=== PATIENT | female | born 1935 | race Caucasian/White ===

== ENCOUNTER 2016-12-04 15:41 | Inpatient (IN) | payer MEDICARE ==
[~2016-12-04] VITALS: Ht 157.5 cm; Wt 97.0 kg
--- NOTE | ~2016-12-04 | ECHO ---
Transthoracic Echocardiography Report (TTE) Demographics Patient Name JAK KYLE Date of Study 12/04/2016 Patient Number [id number] Visit Number [id number] Date of 1935 Room Number G6203 Gender Female Number Age 81 year(s) Referring More Dangelo Utility Mechanic Supervisor Wiliam Lazcano RVT, Physician [facility] Ghanshyam Redding MD Physician Interpreting More Dangelo Adjunct Lecturer Physician Supervising Ordering More Dangelo MD/MLP Physician Nurse Stress Silk Worker Conclusions Contractility Score Summary Normal Left Ventricular contractility was noted. Summary The estimated left ventricular ejection fraction is 65% with normal WM.LV wall thickness is normal.The left ventricle is normal in size . Mildly dilated RHCs with normal RV function. Mild mitral regurgitation by color Doppler. Mild aortic sclerosis. Mild to moderate tricuspid regurgitation by color Doppler. There is severe pulmonary hypertension. The pulmonary pressure (RVSP) is 57 mmHg. Procedure Type of Study TTE procedure:2D Echocardiogram. Procedure Date Date: 12/04/2016 Start: 05:06 PM Study Location: Car Refinisher Technical Quality: Fair due to lung interference. Indications:Post Code. Appropriate Use Criteria: 8 Patient Status: STAT Rhythm: NSR HR: 59 bpm Allergies - No known allergies. M-Mode/2D Measurements LV Diastolic Dimension: 4.31 cm LV Systolic Dimension: 2.5 cm LV Septum Diastolic: 0.87 cm LV PW Diastolic: 0.8 cm Cardiac Output: 1.53 l/min LA Dimension: 3.3 cm EF Estimated: 65 % LVOT: 1.4 cm LVOT VTI: 16.9 cm RV Base: 3.36 cm LV Stroke volume: 26 ml RV Length: 6.86 cm TAPSE: 1.73 cm TDI-S': 8.33 cm/s Doppler Measurements AV Peak Velocity: 1.8 m/s MV Peak E-Wave: 0.87 m/s AV Peak Gradient: 12.96 mmHg MV Peak A-Wave: 0.41 m/s AV Mean Gradient: 7 mmHg MV E/A Ratio: 2.16 LVOT Peak Velocity: 0.99 m/s MV P1/2t: 72 msec TR Gradient:51.55 mmHg PV Peak Velocity: 1.24 m/s Estimated RAP:5 mmHg PV Peak Gradient: 6.15 mmHg Estimated RVSP: 57 mmHg Estimated PASP: 56.55 mmHg E' Septal Velocity: 0.08 m/s A' Septal Velocity: 0.05 m/s E' Lateral Velocity: 0.1 m/s A' Lateral Velocity: 0.07 m/s Findings Left Ventricle The left ventricle is normal in size with normal wall thickness,EF and WM. Right Ventricle Mildly dilated RV with normal function. Left Atrium Normal left atrial size. There is no evidence of patent foramen ovale or atrial septal defect by color Doppler. Right Atrium Mildly dilated RA. Mitral Valve Mild mitral regurgitation by color Doppler. Aortic Valve The aortic valve is mildly sclerotic. Tricuspid Valve Mild to moderate tricuspid regurgitation by color Doppler. There is severe pulmonary hypertension. The pulmonary pressure (RVSP) is 57 mmHg. Pulmonic Valve Normal pulmonic valve structure and function. Pericardial Effusion No evidence of pericardial effusion. Miscellaneous Visualized portions of the aortic root and ascending aorta appear normal in size. Pleural Effusion No evidence of pleural effusion. Contractility Score LV regional wall motion:(0-Non visualized 1-Normal 2-Hypokinesis 3-Akinesis 4-Dyskinesis 5-Aneurysm) Signature dtt: Loreto Aguero dtd: 12/04/16 1706 Physician Self Edit
--- NOTE | ~2016-12-04 | DS ---
PATIENT'S NAME: JAK KYLE [facility] AGE: 81 Y [address] ROOM: [place] [address] LOCATION: GICU ADMIT DATE: 12/04/2016 Discharge Summary DISCHARGE DATE: 12/05/2016 FAMILY PHYSICIAN: Dora Morrissey MD ATTENDING PHYSICIAN: Loreto Aguero DATE OF : 12/05/2016. The patient is a 81-year-old female, who had a back surgery done 3 weeks earlier and was home when she suddenly collapsed. veterinary x ray operator were called and CPR started. Initial rhythm apparently was asystole followed by PEA and then did have ROSC. At that time, an EKG was done, I was called. There was mild ST- elevation which was concave upwards in lead III. But given her sudden cardiac , I decided to take a look at her coronaries. The patient was taken to the company laborer and coronary showed no significant critical lesions. The patient's blood pressure was getting lower, and the patient was placed on intra-aortic balloon pump before her coronary angiography. She was also started on Levophed and Yang-Synephrine to keep her systolic blood pressure up. By then, she was already intubated by the time she left the emergency room. She was transferred back to intensive care unit. Dr. Leroy and Dr. Aguilar were consulted. The patient was not cooled because of significant amount of support that she required for blood pressure maintenance. Based on the patient's circumstance, the family decided to withdraw support several hours later, and the patient in the intensive care unit. MD SONAL PERRIN/neda /[id number] d: 12/07/162123 t: 12/27/16 1449, DISCHARGE SUMMARY
--- NOTE | ~2016-12-04 | ER ---
PATIENT'S NAME: JAK KYLE [facility] AGE: 81 Y [address] ROOM: [place] [address] LOCATION: [place] ADMIT DATE: 12/04/2016 ER/Outpatient Report DISCHARGE DATE: FAMILY PHYSICIAN: Dora Morrissey MD ATTENDING PHYSICIAN: Loreto Aguero CHIEF COMPLAINT: Cardiac arrest. HISTORY OF PRESENT ILLNESS: The patient arrives by ambulance with CPR in progress, after two rounds of epinephrine. EMS reports an initial presenting rhythm of asystole shortly followed by PEA. Total CPR time prior to arrival of 12 minutes. The patient was reported to be at home with family with no prior complaints, who had an intermediate arrest, and she did have a history of back surgery in August. Based on her medication list, she probably has Parkinson's and possibly hypertension versus tremor, as she is treated with labetalol. She is not on any anticoagulation. The family notes she is otherwise healthy and had not had any complaints prior to that. She supposedly just went completely unresponsive. They felt no pulse, started CPR, and called the ambulance. PAST MEDICAL HISTORY: 1. Likely parkinsonism. 2. Back problems. MEDICATIONS: Carbidopa and levodopa, labetalol, and some other medicines. ALLERGIES: NONE. SOCIAL HISTORY: Previously healthy. , lives at home with her in [place]. REVIEW OF SYSTEMS: Unable to obtain. All information was collateral from EMS and family. PHYSICAL EXAMINATION: GENERAL: Initial presentation, cardiac arrest, CPR in progress with adequate chest compressions by Quinn device. Endotracheal tube and bagging underway. HEENT: The patient's pupils are fixed, dilated, and minimally responsive. No pupillary response. She is flaccid in all extremities. No meaningful movement or response to pain. CHEST: CPR in progress. The patient does have bilateral breath sounds, but very coarse. No cardiac tones auscultated. PATIENT'S NAME: JAK KYLE [facility] AGE: 81 Y [address] ROOM: [place] [address] LOCATION: [place] ADMIT DATE: 12/04/2016 ER/Outpatient Report DISCHARGE DATE: FAMILY PHYSICIAN: Dora Morrissey MD ATTENDING PHYSICIAN: Loreto Aguero ABDOMEN: Distended. There are breath sounds in the gastric region as well. EXTREMITIES: Right lower extremity has an IO. Poor perfusion and poor color distally. SKIN: Cool, and clammy at the periphery, warm centrally. The endotracheal tube does have serosanguineous secretions, pink frothy sputum. No obvious bleeding anywhere. No obvious deformities. LABORATORY DATA AND IMAGING STUDIES: Labs and X-rays: Chest x-ray shows upper lobe consolidations consistent with aspiration, pulmonary edema with endotracheal tube in the trachea. EKG concerning for STEMI, lateral ST-segment depressions with criteria in leads III and aVF. Not meeting criteria in lead II. Labs: WBC is 15.6, hemoglobin 10.8, and INR is 1.0. Urinalysis, no evidence of infection. No blood. CMS is pending. IMPRESSION: 1. Status post cardiac arrest with return of spontaneous circulation (ROSC). 2. Likely aspiration with pulmonary edema. 3. Hypoxia. 4. Possible ST-elevation myocardial infarction. 5. Leukocytosis. EMERGENCY DEPARTMENT COURSE: The patient was transferred over to the ER bed. She was transferred to the appropriate monitor and was given a round of epinephrine as soon as possible. Upon the next rhythm check, after 3 minutes, the patient was found to have a pulse. Transthoracic echocardiogram by ER physician showed adequate cardiac squeeze. Blood pressure was elevated in the 180 systolic. The pulmonary exam was consistent with endotracheal intubation without adequate cuff closure. The endotracheal tube was exchanged by myself over a tube exchanger. The cuff was inflated. The patient had definite bilateral breath sounds, and the endotracheal tube was visualized with a C-MAC blade going through the cords. End-tidal CO2 was 56, and the patient had markedly diminished sounds over the epigastrium with breaths. Rest of the FAST exam did not reveal any significant fluid anywhere. No obvious pneumothorax. The extremities were appropriate, not consistent with PE. No septal bulging on my bedside echocardiogram. Chest x-ray and EKG were obtained, likely ischemic event. Dr. Aguero, trouble operator was called at bedside to evaluate the patient. He is recommending transfer to catheterization lab for further intervention. I spoke with the family including the and daughter. They expressed desire to continue with her evaluation at this point in time. However, they thought that she would not want further extreme measures if we determine that it would be a poor outcome. As the patient was a witnessed arrest with immediate resuscitation, She would have a somewhat decent chance of recovery. The patient was taken to the catheterization lab emergently. Her blood PATIENT'S NAME: JAK KYLE [facility] AGE: 81 Y [address] ROOM: [place] [address] LOCATION: [place] ADMIT DATE: 12/04/2016 ER/Outpatient Report DISCHARGE DATE: FAMILY PHYSICIAN: Dora Morrissey MD ATTENDING PHYSICIAN: Loreto Aguero pressure had been trending down, but blood pressure did stabilize around 100 systolic. There is no evidence of hemorrhage or DVT. EKG does not reveal any significant electrolyte abnormalities and for patient's sake, she was taken to the catheterization lab at that time. She remained unstable. Dr. Leroy, hospitalist was made aware and will participate in her care, if she survives the catheterization lab. PROCEDURES: Endotracheal intubation. Endotracheal tube was exchanged over the tube exchanger and visualized through the cords with adequate end-tidal CO2 by myself at bedside. CPR: Three minutes of CPR was immediately supervised by myself before ROSC. CRITICAL CARE: 32 minutes of critical care was spent on this patient in the emergency department. Time was spent in preparation of the room initiating code blue, consult with the hospitalist and Cardiology, ordering and interpreting chest x- ray, ordering and interpreting EKG, ordering labs, bedside assessment, and stabilization in the setting of post arrest with return of spontaneous circulation. All questions were answered to the family to the best of my ability, and the patient was taken to the catheterization lab in critical condition. MD JAY GREENE/neda /[id number] d: 12/04/162235 t: 12/07/162218, OUTPATIENT REPORT
--- NOTE | ~2016-12-04 | CON ---
PATIENT'S NAME: JAK KYLE [facility] AGE: 81 Y [address] ROOM: [place] [address] LOCATION: GICU ADMIT DATE: 12/04/2016 Consultation DISCHARGE DATE: FAMILY PHYSICIAN: Dora Morrissey MD ATTENDING PHYSICIAN: Loreto Aguero DATE OF CONSULTATION: 12/04/2016 REFERRING PHYSICIAN: Cesar Aguilar MD REFERRING: Hospitalist Service. REASON FOR REFERRAL: Respiratory failure. HISTORY OF PRESENT ILLNESS: The patient is a 81-year-old woman who developed a cardiac arrest at home. She was down for 10-15 minutes before effective circulation was restored. PAST MEDICAL HISTORY: Please refer to the admission history and physical exam. FAMILY HISTORY: Unobtainable due to her intubated state. SOCIAL HISTORY: Unobtainable due to her intubated state. REVIEW OF SYSTEMS: Unobtainable due to her intubated state. PHYSICAL EXAMINATION: GENERAL: Unresponsive on mechanical ventilation, intubated. ENT: Unremarkable. NECK: Normal. CHEST: Normal. LUNGS: Diminished. HEART: Regular. ABDOMEN: Nontender. ASSESSMENT: Cardiac arrest. PLAN: The patient's family has asked to withdraw support given her poor prognosis. PATIENT'S NAME: JAK KYLE [facility] AGE: 81 Y [address] ROOM: [place] [address] LOCATION: [facility] ADMIT DATE: 12/04/2016 Consultation DISCHARGE DATE: FAMILY PHYSICIAN: Dora Morrissey MD ATTENDING PHYSICIAN: Loreto Aguero We will comply with this request. MD PAMELA LOPEZ/modl /[id number] d: 12/05/16 0011 t: 12/05/16 1743, CONSULTATION REPORT
--- NOTE | ~2016-12-04 | HP ---
PATIENT'S NAME: JAK KYLE [facility] AGE: 81 Y [address] ROOM: [place] [address] LOCATION: [facility] ADMIT DATE: 12/04/2016 History & Physical DISCHARGE DATE: FAMILY PHYSICIAN: Dora Morrissey MD ATTENDING PHYSICIAN: Loreto Aguero DATE OF SERVICE: CHIEF COMPLAINT: Cardiac arrest. HISTORY OF PRESENT ILLNESS: This is a 81-year-old female who was a code blue to the emergency room of [facility]. History was obtained from the who witnessed the event. He reported that as the patient was about getting dressed for them to go for a steak dinner, as she sat on her mobile commode, she suddenly passed out with her head going backwards and the reported at that point in time, he was unable to get a pulse, so he called 911 and the EMS team came, so the patient was a code blue to the emergency room at [facility] and the patient was intubated on field, and upon arrival in the ER, CPR was continued and ROSC was obtained after 15 minutes. Per report, the initial EKG which was done in the ER appeared to show what appeared to be an inferior STEMI and so the STEMI code was called and the patient was emergently taken into the into the [facility]. Per report, the cardiac cath which was done essentially showed a negative coronaries, however, prior to the cath, the patient had an intra- atrial balloon pump placed as there was concern that probably maybe she had an inferior wall ID. Following the negative cath, the senior gis analyst, Dr. Aguero, decided to order a CT of the head without contrast as well as CT of the chest without contrast. Verbal report from Dr. Diggs, the radiologist per the CT of the thorax was that it showed diffuse consolidation of the lungs, which could be from fluid or from aspiration and also extensive air in both the thoracic as well as the aorta. He reports that the CT head is negative. The also reports that the patient was in her usual state of health and mind when woke up this morning, and even yesterday she was in her usual state without any problems or complaints. On the patient's arrival from the [facility], she was on 3 pressors, on Yang-Synephrine, on Levophed, as well as dopamine. REVIEW OF SYSTEM: All the system were asked and as documented in the HPI others are negative. PAST MEDCIAL HISTORY: Chronic lower back pain, Osteoarthritis of the hips. PAST SURGICAL HISTORY: Bilateral hip replacement,hysterectomy, back surgery, appendectomy sOCIAL HISTORY: Lives with her , no history of smoking or use of alcohol FAMILY HISTORY: Negative for Diabetes Mellitus and premature coronary artery disease PHYSICAL EXAMINATION: VITAL SIGNS: On arrival to the ICU: Blood pressure 144/70, pulse 64, respiratory rate 20, and temperature 93.1. GENERAL: An elderly female who is intubated, who is motionless in the bed, not on sedation, has not been on any sedation since admit. The patient is not responsive to both vocal and tactile stimuli. She does not respond to nail bed pain or sternal rub. On neurologic examination, pupils PATIENT'S NAME: JAK KYLE [facility] AGE: 81 Y [address] ROOM: [place] [address] LOCATION: [facility] ADMIT DATE: 12/04/2016 History & Physical DISCHARGE DATE: FAMILY PHYSICIAN: Dora Morrissey MD ATTENDING PHYSICIAN: Loreto Aguero are fixed and dilated, not responsive to light. There is no corneal reflex. There is no gag reflex. HEENT: Normocephalic, atraumatic. Pharynx: ET tube is in place. Ears: No obvious ear discharge or drainage. CARDIOVASCULAR SYSTEM: Diffuse rales in both lung hinds. ABDOMEN: Soft, nondistended. No area of tenderness. No palpable organomegaly. Reduced bowel sounds. EXTREMITIES: There is no joint swelling or erythema or tenderness. SKIN: No rash or skin breakdown. LABORATORY DATA: Cardiac enzymes: Troponin less than 0.040. CPK 265. ABG; pH 7.10, pCO2 54, PO2 64, bicarb 16.8. WBC 15.6, H and H 10.8/38.8, and platelets 100. Sodium 139, creatinine 2.3, potassium 6.4, chloride 107, CO2 16, calcium 8.1, BUN 56, and glucose 195. Alkaline phosphatase 184, ALT 11, AST 84. Albumin 3.5. Magnesium 2.9. INR 1.08. UA: Leukocytes negative, nitrite negative, wbc's 2- 5. CT of the head is reported as normal CT scan of the head except for sphenoid air cell fluid. ASSESSMENT AND PLAN: This is a 81-year-old female with cardiac arrest. 1. Cardiac arrest, present on admission, unknown etiology. The patient is status post left heart catheterization, as per report negative coronaries. The patient has had a CT chest and a CT head. 2. 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 We will get an MRI of the brain probably tomorrow and if the patient's family have not withdrawn care, we will get an MRI on Tuesday. 3. Acute kidney injury, likely secondary to cardiac arrest. Renal has been consulted. 4. Aspiration pneumonia. We will start the patient on Zosyn and clindamycin. Pharmacy is to dose. So prognosis is very poor. I did discuss with the and the daughter that the prognosis is very poor and that most probably the patient has passed as there is not much brainstem function present and they did express their understanding and they are waiting for other family members to be present. The line of management was explained to the family as well as care. Time spent on this patient is approximately 1 hour. ADWOA IGNACIO MD ODO/neda PATIENT'S NAME: JAK KYLE [facility] AGE: 81 Y [address] ROOM: [place] [address] LOCATION: [facility] ADMIT DATE: 12/04/2016 History & Physical DISCHARGE DATE: FAMILY PHYSICIAN: Dora Morrissey MD ATTENDING PHYSICIAN: Loreto Aguero /[id number] D: 356 T: 650 HISTORY & PHYSICAL
--- NOTE | ~2016-12-04 | CATH ---
Cardiac Diagnostic Report Demographics Patient Name SAROJ Estes Gender Female Date of 1935 Age 81 year(s) Patient Number [id number] Date of Study 12/04/2016 Visit Number [id number] Room Number G6[address] [place] [id number] Ht 162.56 cm Wt 92.4 kg Referring Ghanshyam Redding Primary Physician Physician Performing More Secondary Physician Physician Loreto CHRIS Diagnostic More Assisting Physician Physician Loreto CHRIS Interventional Physician Dredge Captain Physician Findings and Conclusions Diagnostic Findings and Conclusion Minimal CAD. LVEDP 20 Diagnostic Recommendations IABP and medical therapy. Procedure Description The patient was brought to the diagnostic cardiac catheterization-EP laboratory in the fasting, non-sedated state. Informed consent was obtained in the written and verbal form after the risks and benefits were explained. The patient had no further questions and agreed to proceed. The planned puncture-incision site(s) were shaved and prepped with ChloraPrep and draped in the usual sterile manner. supplemental oxygen, and pain control medications were delivered by a registered nurse under physician guidance. Surface ECG rhythm, blood pressure measurement, and pulse oximetry were monitored throughout the procedure. Arterial access. The access site was infiltrated with lidocaine. The vessel was entered with the Seldinger technique. A sheath was advanced into the vessel and used for catheter placement. IABP placement. The balloon catheter was advanced into the aorta and the tip was fluoroscopically positioned just distal to the left subclavian artery origin. The floppy guidewire was removed, and the central lumen of the catheter was flushed and attached to a pressure transducer. Balloon pumping was initiated, adjusting inflation and deflation times to maximize diastolic augmentation and minimize presystolic LV afterload. The intra-aortic balloon catheter was sutured in place at the end of the procedure. Left heart catheterization. A catheter was advanced across the aortic valve to the left ventricle under fluoroscopic guidance. Resting hemodynamics were obtained. Selective right coronary angiography. A catheter was advanced into the right coronary vessel ostium under fluoroscopic guidance. Contrast was injected by hand. Images were obtained in multiple projections. Selective left coronary angiography. A catheter was advanced into the left coronary vessel ostium under Fluoroscopic guidance. Contrast was injected by hand. Images were obtained in multiple projections. Arterial artery hemostasis was achieved. The patient was transferred to CT then to ICU with boat laborer personal. Diagnostic Cath Status: Emergency Procedure Procedure Type Diagnostic procedure:Angiography:, Coronary Angios w/[facility], Support:, IABP: Indications: Post Code. Angiographic Findings Dominance: Right Cardiac Arteries and Lesion Findings LMCA: Luminal irregularities LAD: Luminal irregularities LCx: Luminal irregularities RCA: Luminal irregularities Procedure Data Procedure Date Date: 12/04/2016Start: 04:39 PMEnd: 05:36 PM Entry Locations - Percutaneous access was performed through the Right Femoral artery. A 7.5 Fr sheath was inserted. Closure Comments: Stat lock in place. - Percutaneous access was performed through the Left Femoral artery (Primary location). A 7 Fr sheath was inserted. Hemostasis was successfully obtained using Suture. Closure Comments: Sutured by [place]. - Percutaneous access was performed through the Right Femoral vein. A 6 Fr sheath was inserted. Hemostasis was successfully obtained using Suture. Closure Comments: Sutured in place by [place]. Procedure Medications Order and Administration + + + + + !Time !Medication !Dosage !Route ! + + + + + !12/04/2016 04:31 !Dopamine !2 mcg/kg/min !I.V. drip ! !PM ! ! ! ! + + + + + !12/04/2016 04:35 !Dopamine !5 mcg/kg/min !I.V. drip ! !PM ! ! ! ! + + + + + !12/04/2016 04:38 !Levophed (Norepinephrine) !0.01 !I.V. drip ! !PM ! !mcg/kg/min ! ! + + + + + !12/04/2016 04:46 !Levophed (Norepinephrine) !0.02 !I.V. drip ! !PM ! !mcg/kg/min ! ! + + + + + !12/04/2016 04:55 !Levophed (Norepinephrine) !0.03 !I.V. drip ! !PM ! !mcg/kg/min ! ! + + + + + !12/04/2016 04:56 !Levophed (Norepinephrine) !0.06 !I.V. drip ! !PM ! !mcg/kg/min ! ! + + + + + !12/04/2016 04:56 !Dopamine !10 mcg/kg/min !I.V. drip ! !PM ! ! ! ! + + + + + !12/04/2016 04:58 !Levophed (Norepinephrine) !0.08 !I.V. drip ! !PM ! !mcg/kg/min ! ! + + + + + !12/04/2016 04:58 !Levophed (Norepinephrine) !0.1 mcg/kg/min!I.V. drip ! !PM ! ! ! ! + + + + + !12/04/2016 05:00 !Yang-Synephrine !100 mcg !I.V. bolus ! !PM !(Phenylephrine) ! ! ! + + + + + !12/04/2016 05:00 !Levophed (Norepinephrine) !0.2 mcg/kg/min!I.V. drip ! !PM ! ! ! ! + + + + + !12/04/2016 05:01 !Atropine !1 mg !I.V. ! !PM ! ! ! ! + + + + + !12/04/2016 05:05 !Yang-Synephrine !0.05 !I.V. drip ! !PM !(Phenylephrine) !mcg/kg/min ! ! + + + + + !12/04/2016 05:06 !Dopamine !15 mcg/kg/min !I.V. drip ! !PM ! ! ! ! + + + + + !12/04/2016 05:06 !Yang-Synephrine !0.1 mcg/kg/min!I.V. drip ! !PM !(Phenylephrine) ! ! ! + + + + + Devices Used - A6 Fr. BS JR 4 Diag. Catheterwas used for:Right coronary angiography. - A6 Fr. BS JL 4 Diag. Catheterwas used for:Left coronary angiography. Contrast Material - Isovue 13831 ml Fluoroscopy Time: Diagnostic: 3:42 minutes. Total: 3:42 minutes. Fluoroscopy Dose: Diagnostic: 399 mGy. Total: 399 mGy. Estimated Blood Loss: 20 ml. IABP: IABP was Inserted during procedure and prior to PCI. Other Mechanical Ventricular Support: In place at start of procedure. Medical History Performed Procedures and Imaging Results - No ACC stress or imaging studies were performed. Allergies - No known allergies. Risk Factors The patient risk factors include:hypertension, last creatinine: 2.3 mg/dl and creatinine clearance: 28.93 ml/min. Admission Data Admission Date: 12/04/2016 Admission Time: 04:25 PM Admit Source: Emergency department Insurance Payors: Medicare. Clinical Evaluation Leading to Procedure - The patient's CAD presentation was assessed as: STEMI. - The patient has had an episode of cardiac arrest within the last 24 hrs. Hemodynamics Condition: Rest O2 Consumption: Estimated: 163.61Heart Rate: 51 bpm Pressures (mmHg) +-----+ + !Site !Pressure ! +-----+ + !LV !69/13 ,20 ! +-----+ + !AO !86/43 (61) ! +-----+ + !LV !82/14 ,27 ! +-----+ + !AO !94/31 (60) ! +-----+ + !AO !91/28 (67) ! +-----+ + Valve Gradients and Areas + +---------+---------+---------+ +---------+ + !Valve !Peak !Mean !Area !Index !Flow !Source ! + +---------+---------+---------+ +---------+ + !Aortic !0 !0 ! ! ! ! ! + +---------+---------+---------+ +---------+ + !Aortic !0 !0 ! ! ! ! ! + +---------+---------+---------+ +---------+ + Shunts Oxygen Values O2 Capacity 146.88 O2 Consumption 163.61 Discharge Data Discharge Date: 12/05/2016 Hospital Status: Inpatient Signatures dtt: Loreto Aguero dtd: 12/04/16 1639 Physician Self Edit
--- NOTE | ~2016-12-04 | HP ---
PATIENT'S NAME: JAK RENEE [facility] AGE: 81 Y [address] ROOM: [place] [address] LOCATION: [facility] ADMIT DATE: 12/04/2016 History & Physical DISCHARGE DATE: FAMILY PHYSICIAN: Dora Morrissey MD ATTENDING PHYSICIAN: Loreto Aguero DATE OF SERVICE: HISTORY OF PRESENT ILLNESS: Ms. Renee is a 81-year-old female patient, who was at home. She had about 3 months back a second back surgery. She was recuperating, trying to have some regular exercise program at the swimming pool downstairs two times a week. She was going down and walking on the pool. Today, she was at home with her . When the apparently helped her to the bathroom, she had a passing out spell, and the green building engineer were called. They found her to be pulseless and started CPR. Somewhere along the line, initial rhythm was found to be asystole followed by EPA and when she arrived in the emergency room, she had three boluses of adrenaline with recovery of ROSC. Digna wade was called, and an initial EKG was done which showed no definitive evidence of acute NM. But because of pink frothy sputum from her mouth, she was taken to the color laboratory technician as a first step to help stabilize her there. In the color laboratory technician, a balloon pump was placed and additional pressors were added. There is no history of chest pains or shortness of breath. She has lately been somewhat more short of breath than before. She had been in functional class III for 3 months. There is no paroxysmal nocturnal dyspnea or orthopnea. She has some discomfort in the right thigh which limits her. There has been no lightheadedness, dizziness, syncope, presyncope, palpitations, or ankle swelling. Apparently, she has no history of hypertension, type 2 diabetes, elevated cholesterol, tobacco abuse, or family history of premature coronary artery disease. There is no prior history of NM, angina, or nitroglycerin use. There is no history of rheumatic fever, heart murmur, heart failure, dilated or enlarged heart, or any diagnosed cardiac arrhythmias. MEDICATIONS: 1. Furosemide 20 mg every morning. 2. Carbidopa levodopa 3 tablets a day. 3. Propranolol 1-1/2 tablets three times a day. 4. Pramipexole 1.5 mg half a tablet three times a day. 5. Aleve 220 mg 3 times a day. PATIENT'S NAME: JAK RENEE [facility] AGE: 81 Y [address] ROOM: [place] [address] LOCATION: GI ADMIT DATE: 12/04/2016 History & Physical DISCHARGE DATE: FAMILY PHYSICIAN: Dora Morrissey MD ATTENDING PHYSICIAN: Loreto Aguero 6. Acetaminophen 325 mg 2 tablets three times a day. 7. Gabapentin 300 mg 3 at bedtime. ALLERGIES: APPARENTLY, HAS NO KNOWN ALLERGIES. PAST MEDICAL HISTORY: 1. Hysterectomy. 2. Two back surgeries. 3. C-sections. 4. Cataract. 5. Appendectomy. 6. Two hip surgeries. 7. DJD. SOCIAL HISTORY: The patient is . She has no history of alcohol abuse. Her appetite and weight have been increasing since surgery. Sleep is fair. FAMILY HISTORY: No premature coronary artery disease. REVIEW OF SYSTEMS: A 12-point review of systems reveal essentially no other abnormalities other than above. PHYSICAL EXAMINATION: VITAL SIGNS: On examination, her initial blood pressure in the emergency room was 130. She had been intubated and she had pink frothy sputum. Her EKG was not conclusive. HEENT: Normal. NECK: Supple with no JVD, thyromegaly, lymphadenopathy, or carotid bruit. CARDIAC: PMI is not well located. First and second heart sounds are regular. There are no added sounds or murmurs. CHEST: Clear to auscultation. ABDOMEN: Obese. EXTREMITIES: Reveal no edema. CENTRAL NERVOUS SYSTEM: Difficult to assess at this time. ASSESSMENT: Sudden collapse with pulseless electrical activity as well as asystole as the initial presentation. Her overall prognosis is not the best at this point. PLAN: We will take her to the color laboratory technician, put a balloon pump in, and get her PATIENT'S NAME: JAK RENEE [facility] AGE: 81 Y [address] ROOM: [place] [address] LOCATION: GICU ADMIT DATE: 12/04/2016 History & Physical DISCHARGE DATE: FAMILY PHYSICIAN: Dora Morrissey MD ATTENDING PHYSICIAN: Loreto Aguero stabilized. Then, based on her coronary angiography, further evaluation will be performed. MD SONAL PERRIN/neda /[id number] D: [id number] T: [id number] HISTORY & PHYSICAL
[2016-12-04 16:10] LABS: HEMATOCRIT 38.8 % (33.0-46.0); HEMOGLOBIN 10.8 g/dL (10.0-15.0); MCH 27.8 pg (27.0-34.0); MCHC 27.8 gm/dL (32.0-36.5); MPV 10.8 fl (9.4-12.4); RBC 3.89 M/uL (3.50-5.50); RDW-CV 15.6 % (11.9-14.6); WBC 15.6 K/uL (4.0-11.0)
[2016-12-04 16:11] LABS: MCV 99.7 fl (83.0-98.0); PLATELET COUNT 100 K/uL (150-450)
[2016-12-04 16:12] LABS: BLOOD URINE NEGATIVE /UL (NEGATIVE); COLOR URINE YELLOW (YELLOW); GLUCOSE URINE NEGATIVE (NEGATIVE); KETONE URINE 5 mg/dL (NEGATIVE); LEUKOCYTES URINE NEGATIVE /UL (NEGATIVE); NITRITE URINE NEGATIVE (NEGATIVE); PROTEIN URINE 30 mg/dL (NEGATIVE); TURBIDITY URINE CLEAR (CLEAR); UROBILINOGEN URINE 1 mg/dL (NORMAL)
[2016-12-04 16:18] LABS: INR - (THERAPEUTIC) 1.08 (0.92-1.07); PROTIME 11.3 SECONDS (9.8-11.4); PTT 26 SECONDS (25-32)
[2016-12-04 16:22] LABS: RBC URINE 0-2 #/HPF (NEGATIVE)
[2016-12-04 16:25] LABS: AMORPHOUS URINE 2+ (NEGATIVE); BACTERIA URINE RARE (NEGATIVE); HYALINE CAST URINE 50-100 #/LPF (NEGATIVE)
[2016-12-04 16:31] LABS: ALBUMIN 3.5 gm/dL (3.5-5.0); ALK PHOS 184 IU/L (33-138); ALT 11 IU/L (12-78); CALCIUM 8.1 mg/dL (8.5-10.5); CHLORIDE 107 mMol/L (96-110); CPK 265 IU/L (21-215); CREATININE 2.3 mg/dL (0.5-1.1); SODIUM 139 mMol/L (135-145); TOTAL PROTEIN 6.7 g/dL (6.0-8.4)
[2016-12-04 16:34] LABS: ANION GAP 22.4 (10.0-19.0); AST 84 IU/L (10-40); BLOOD UREA NITROGEN 56 mg/dL (6-24); CO2 16 mMol/L (22-32); ESTIMATED GFR (MDRD EQUATION) 20; MAGNESIUM 2.9 mg/dL (1.8-2.6); POTASSIUM 6.4 mMol/L (3.7-5.1); TOTAL BILIRUBIN 0.6 mg/dL (0.0-1.5)
[2016-12-04 16:42] LABS: ABSOLUTE NEUTROPHIL CT (ANC) 10.3 K/uL (1.8-7.8); BANDED NEUTROPHIL # 0.3 K/uL (0.0-0.1); BANDED NEUTROPHILS % 2 %; LYMPHOCYTE # 4.2 K/uL (0.8-4.0); LYMPHOCYTE % 27 %; MONOCYTE # 0.5 K/uL (0.0-1.0); SEGMENTED NEUTROPHIL % 64 %
[2016-12-04 17:12] LABS: BICARBONATE 16.8 mmol/L (18.0-23.0); PCO2 54 mmHg (35-45); PO2 64 mmHg (80-90)
[2016-12-04 19:41] LABS: PCO2 52 mmHg (35-45)
[2016-12-04 19:47] LABS: BICARBONATE 23.3 mmol/L (18.0-23.0); PO2 45 mmHg (80-90)
[2016-12-04 20:01] LABS: ALBUMIN 3.8 gm/dL (3.5-5.0)
[2016-12-04 20:02] LABS: TOTAL BILIRUBIN 0.9 mg/dL (0.0-1.5)
== END 2016-12-05 01:24 | disposition expired | DRG 270 ==
LOC: GMED 15:41 → GICU 16:25 → GPCU 16:25 → GICU 18:40
PROVIDERS: Emergency Medicine; ADMIT Internal Medicine Interventional Cardiology
PROC: 5A12012 Performance of Cardiac Output, Single, Manual (ICD-10-PCS; principal; 2016-12-04)
PROC: 5A1935Z Respiratory Ventilation, Less than 24 Consecutive Hours (ICD-10-PCS; principal; 2016-12-04)
PROC: 0BH17EZ Insertion of Endotracheal Airway into Trachea, Via Natural or Artificial Opening (ICD-10-PCS; principal; 2016-12-04)
PROC: 4A023N7 Measurement of Cardiac Sampling and Pressure, Left Heart, Percutaneous Approach (ICD-10-PCS; 2016-12-04)
PROC: B2111ZZ Fluoroscopy of Multiple Coronary Arteries using Low Osmolar Contrast (ICD-10-PCS; 2016-12-04)
PROC: 5A02210 Assistance with Cardiac Output using Balloon Pump, Continuous (ICD-10-PCS; 2016-12-04)
DX: I46.9 Cardiac arrest, cause unspecified (principal); J69.0 Pneumonitis due to inhalation of food and vomit; J96.90 Respiratory failure, unspecified, unspecified whether with hypoxia or hypercapnia; G93.1 Anoxic brain damage, not elsewhere classified; N17.9 Acute kidney failure, unspecified; M19.90 Unspecified osteoarthritis, unspecified site; I10 Essential (primary) hypertension; Z51.5 Encounter for palliative care
CPT/HCPCS: J0171; J0461; J1265; J1644; J2270; J2370; J2543; J7030; J7060; P9047

== ENCOUNTER → 2016-12-04 | Outpatient (CLI) | payer MEDICARE ==
[~2016-12-04] MED LIST: ALEVE220 MG PO; CALCIUM 600 +1 EAC3 PO; COLACE100 MG PO; CYCLOBENZAPRINE5 MG PO; DULCOLAX5 MG PO; MEDROL4 M1 PO; MIRALAX17 GM PO; NORCO 5-325 TA1 EACH PO; PRAMIPEXOLE DI1.5 MG PO; PROPRANOLOL HCL40 MG PO; SINEMET 25-1001 EACH PO
== END | disposition disaster alternative care site (69) ==
LOC: GAMB 15:19
DX: I46.9 Cardiac arrest, cause unspecified (principal); M54.9 Dorsalgia, unspecified; G89.29 Other chronic pain
CPT/HCPCS: A0422; A0425; A0433; J0171